=== PATIENT | male | born 1980 | race Caucasian/White ===

== ENCOUNTER 2016-11-18 21:47 | Emergency (ER) ==
[2016-11-18 21:47] VITALS: BMI 27.4
[2016-11-18 21:56] VITALS: BP 137/83; TEMP 99.1
[2016-11-18] MEDS ORDERED: DECADRON 4 MG/ML SDV IM STA (22:00)
[2016-11-18] MEDS ORDERED: PHENERGAN WITH CODEINE 6.25/10 MG/5 ML PO STA (22:00)
[2016-11-18] MEDS ORDERED: TUSSIONEX PO STA (22:03)
--- NOTE | 2016-11-18 22:06 | ED.PDOC ---
General ED Provider: Dr. STEFFANIE VAZQUEZ Chief Complaint: Cough Stated Complaint: Patient was in the hospital last week for the coughing congestion, now says he coughed so much blood is coming Time Seen by Physician: 22:04 Mode of Arrival: Walk-In Information Source: Patient Nursing and Triage Documentation Reviewed and Agree: Yes Respiratory Complaint Exam - Respiratory Complaint/Exam Symptoms Are: Still present Timing: Constant Initial Severity: Moderate Current Severity: Moderate Location: Chest Character: Reports: Non-productive cough Aggravating: Reports: Allergens, URI Alleviating: Reports: None Associated Signs and Symptoms: Reports: URI, Nasal congestion. Denies: Rapid breathing, Dyspnea, Fever, Chills, Chest pain, Pleuritic chest pain, Wheezing, Hemoptysis, Dizziness, Calf pain, Calf swelling, Edema, Hoarseness, Sinus discomfort, Vomiting, Sore throat, Weight loss, Decreased oral intake, Increased thirst, Increased appetite, Increased urination Related History: Reports: Similar episode History of Healthcare-Acquired Pneumonia: No Related Surgical History: Reports: None Pulmonary Embolism Risk Factors: None Cardiac Risk Factors: Reports: None Pseudomonas Risk Factors: Reports: None Tuberculosis Risk Factors: Reports: None Status Asthmaticus Risk Factors: Reports: None Home Oxygen Use: No Recent Stress Test: No Recent Echo/LV Function: No Current Antibiotic Use: No Current Asthma Medication Use: No Respiratory Distress: None Inadequate Respiratory Effort: No Dysphagia Present: No Stridor Present: No JVD Present: No Retractions: Not Present Diminished Breath Sounds: No Sinus Tenderness: None Grunting Respirations: No Kussmaul Respirations: No Differential Diagnoses: Pneumonia, Bronchitis Review of Systems - Review Of Systems Constitutional: Reports: Malaise, Weakness Eyes: Reports: No symptoms Ears, Nose, Mouth, Throat: Reports: No symptoms Respiratory: Reports: Cough Cardiac: Reports: No symptoms GI: Reports: No symptoms : Reports: No symptoms Musculoskeletal: Reports: No symptoms Skin: Reports: No symptoms Neurological: Reports: No symptoms Endocrine: Reports: No symptoms Hematologic/Lymphatic: Reports: No symptoms All Other Systems: Reviewed and Negative Past Medical History - Past Medical History Previously Healthy: Yes Endocrine: Reports: None Cardiovascular: Reports: Other (echo showed valve issues 9 months ago- resolved on repeat exam, chronic fast heart beat "110") Respiratory: Reports: Pneumonia (5 0 years old and as a teen) Hematological: Reports: None Gastrointestinal: Reports: None Genitourinary: Reports: None Neuro/Psych: Reports: None Musculoskeletal: Reports: None Cancer: Reports: None - Surgical History General Surgical History: Reports: None - Family History Family History: Reports: None - Social History Smoking Status: Former smoker, Vaping Hx Substance Use: No Alcohol Screening: None - Immunizations Tetanus Shot up to Date: Yes Physical Exam - Physical Exam Appearance: Ill-appearing Ill-appearing: Mild Eyes: RIAZ, EOMI, Conjunctiva clear ENT: Ears normal, Nose normal, Oropharynx normal Respiratory: Airway patent, Breath sounds clear, Breath sounds equal, Respirations nonlabored Cardiovascular: RRR, Pulses normal, No rub, No murmur GI/: Soft, Nontender, No masses, Bowel sounds normal, No Organomegaly Musculoskeletal: Normal strength, ROM intact, No edema, No calf tenderness Skin: Warm, Dry, Normal color Neurological: Sensation intact, Motor intact, Reflexes intact, Cranial nerves intact, Alert, Oriented Psychiatric: Affect appropriate, Mood appropriate Interpretation - Radiology Interpretation Radiology Interpretation By: Radiologist Radiology Results: Negative Exam Interpreted: CT Scan Critical Care Note - Critical Care Note Total Time (mins): 0 Course - Course Hematology/Chemistry: 11/18/16 22:06 11/18/16 22:06 Orders, Labs, Meds: Lab Review 11/18/16 22:06 WBC 14.43 H RBC 4.34 L Hgb 13.6 L Hct 39.1 L MCV 90.1 D MCH 31.3 H MCHC 34.8 RDW Coeff of Huey 12.3 Plt Count 330 Neutrophils % (Manual) 65.0 Lymphocytes % (Manual) 26.0 Monocytes % (Manual) 4.0 Eosinophils % (Manual) 1.0 Reactive Lymphocytes 4.0 Sodium 139 Potassium 4.1 Chloride 106 Carbon Dioxide 23 Anion Gap 14.1 BUN 20 H Creatinine 0.86 Estimated GFR (MDRD) 102.00 BUN/Creatinine Ratio 23.25 Glucose 108 H Calcium 8.9 Total Bilirubin 0.25 AST 24 ALT 72 Alkaline Phosphatase 86 Total Protein 6.5 Albumin 3.4 Globulin 3.1 Albumin/Globulin Ratio 1.10 Orders Category Date Time Status CBC W/ AUTO DIFF Stat LAB 11/18/16 22:06 Completed COMPREHENSIVE METABOLIC PANEL Stat LAB 11/18/16 22:06 Completed MANUAL DIFFERENTIAL Stat LAB 11/18/16 22:06 Completed Dexamethasone 4 mg/ml Inj [Decadron 4 mg/ml Sdv] MEDS 11/18/16 22:00 Discontinued 4 mg IM ONCE STA Hydrocodone/Chlorphen Polis [Tussionex] MEDS 11/18/16 22:03 Discontinued 5 ml PO ONCE STA CT CHEST W/O CONTRAST Stat RADS 11/18/16 22:00 Completed Medications Discontinued Medications Generic Name Dose Route Start Last Admin Trade Name Naunq PRN Reason Stop Dose Admin Chlorphenir/Hydrocodone Polistirex 5 ml 11/18/16 22:03 11/18/16 22:23 Tussionex PO 11/18/16 22:04 5 ml ONCE STA Administration Dexamethasone Sodium Phosphate 4 mg 11/18/16 22:00 11/18/16 22:23 Decadron 4 Mg/Ml Sdv IM 11/18/16 22:01 4 mg ONCE STA Administration Vital Signs: Temp Pulse Resp BP Pulse Ox 11/18/16 21:48 99.1 F 86 22 137/83 97 Departure - Departure Time of Disposition: 22:55 Disposition: HOME SELF-CARE Discharge Problem: Acute upper respiratory infection Instructions: Upper Respiratory Infection (ED) Condition: Stable Pt referred to PMD for follow-up: Yes Additional Instructions: CONTINUE KEFLEX, STEROIDS START Z PACK PLEASE START TAKING OTC COUGH SYRUP 4-5 HRLY INCREASE HYDRATION PROBIOTICS Prescriptions: Azithromycin [Zithromax] 250 mg PO DIRECTED #6 tablet Allergies/Adverse Reactions: Allergies amoxicillin Adverse Reaction (Verified 11/18/16 21:54) Sulfa (Sulfonamide Antibiotics) Adverse Reaction (Verified 11/18/16 21:54) Home Medications: Ambulatory Orders Albuterol Sulfate [Proair Hfa] 2 puff IH Q6H PRN #1 puff 11/15/16 Cephalexin [Keflex] 500 mg PO Q12HR #10 capsule 11/15/16 Hydrocodone/Chlorphen Polis [Tussionex] 5 ml PO Q12H PRN #240 disp.syrin Methylprednisolone [Medrol Dosepak] 1 mg PO DIRECTED #1 tab.ds.pk 11/15/16 Metoprolol Tartrate [Lopressor] 12.5 mg PO BID #60 tablet 11/15/16 Azithromycin [Zithromax] 250 mg PO DIRECTED #6 tablet 11/18/16 Disposition Discussed With: Patient
[2016-11-18 22:13] LABS: HEMATOCRIT 39.1 % (42.0-52.0); HEMOGLOBIN 13.6 g/dl (14.0-18.0); MEAN CORPUSCULAR HEMOGLOBIN 31.3 pg (27.0-31.0); MEAN CORPUSCULAR HGB CONC 34.8 (31.8-35.4); MEAN CORPUSCULAR VOLUME 90.1 fl (80.0-94.0); PLATELET COUNT 330 10^3/uL (140-440); RED BLOOD COUNT 4.34 10^6/ul (4.70-6.10); WHITE BLOOD COUNT 14.43 K/ul (4.2-10.2)
[2016-11-18 22:27] LABS: ANISOCYTOSIS NOT PRESENT (NOT PRESENT)
[2016-11-18 22:31] LABS: ALBUMIN 3.4 g/dL (3.4-5.0); ALBUMIN/GLOBULIN RATIO 1.1; ANION GAP 14.1; BILIRUBIN,TOTAL 0.25 mg/dL (0.00-1.20); BUN/CREATININE RATIO 23.25; CALCIUM 8.9 mg/dL (8.2-10.2); CREATININE 0.86 mg/dL (0.60-1.10); POTASSIUM 4.1 mmol/L (3.5-5.1); TOTAL PROTEIN 6.5 g/dL (6.4-8.2)
--- NOTE | 2016-11-18 22:37 | CT ---
EXAM: CT chest without intravenous contrast 11/18/2016. Sagittal and coronal reformatted images ob tained. HISTORY: Hemoptysis. Pneumonia COMPARISON: 11/14/2016 FINDINGS: The heart size appears within normal limits. There is no pericardial effusion. There are persistent ground-glass opacities within the right and left upper lobe. Faint ground-glas s opacities extend into the lingula, right middle lobe as well as the superior segment of both lower lobes. The majority of this process has resolved as compared to 11/14/2016. This may represent a small amount of residual pneumonia. No pulmonary consolidation, effusion or pneumothorax. There is mild persistent bronchial wall thickening which may relate to bronchiolitis. IMPRESSION: 1. Near-complete resolution of the previously described areas of pneumonia. Faint ground-glass opa city persists. 2. Persistent upper lobe bronchial wall thickening which may relate to bronchiolitis. 3. Retroaortic left renal vein.
== END 2016-11-18 23:05 | disposition home or self-care (01) ==
LOC: ED 21:47
DX: J06.9 Acute upper respiratory infection, unspecified (principal)
CPT/HCPCS: 36415; 80053; 85007; 85025; 96372; 96375; 99283

== ENCOUNTER 2017-02-06 22:28 | Emergency (ER) ==
[2017-02-06 22:41] VITALS: BP 101/64; BMI 25.8
[2017-02-06 23:20] LABS: FLU INTERNAL QC INTERNAL QC VALID; RAPID FLU A NEGATIVE (NEGATIVE); RAPID FLU B NEGATIVE (NEGATIVE)
[2017-02-06] MEDS ORDERED: ZITHROMAX PO STA (23:22)
[2017-02-06] MEDS ORDERED: MOTRIN SUSP PO STA (23:22)
--- NOTE | 2017-02-06 23:25 | ED.PDOC ---
General ED Provider: Dr. BRADEN DARLING-ER Chief Complaint: Fever Stated Complaint: denisa had a sore throat and fever-- Time Seen by Physician: 22:40 Mode of Arrival: Walk-In Information Source: Patient Exam Limitations: No limitations Primary Care Provider: FLORA ENRIQUEZ Nursing and Triage Documentation Reviewed and Agree: Yes EENT Complaint Exam - Throat Complaint/Exam Onset/Duration: 24hrs Symptoms Are: Still present Timimg: Intermittent Initial Severity: Mild Current Severity: Mild Aggravating: Reports: Eating Alleviating: Reports: Antipyretics Associated Signs and Symptoms: Reports: Fever, Nasal congestion. Denies: Dysphagia, Drooling, Foreign body sensation, Chills, Cough, Wheezing, Hoarseness , Sinus discomfort, Difficulty breathing, Lethargy, Irritability, Decreased activity, Vomiting, Diarrhea, Decreased hearing Uvula Midline: Yes Celi-tonsillar Fluctuence: Yes Scarlatinaform Rash Present: No Exanthem: Present: Pharynx Stridor Present: No Sinus Tenderness Present: No Tonsillar Hypertrophy Present: No Tonsillar Exudate Present: No Celi-tonsillar Swelling Present: No Adenopathy Present: Yes Splenomegaly Present: No Differential Diagnoses: Pharyngitis Review of Systems - Review Of Systems Constitutional: Reports: Fever Eyes: Reports: No symptoms Ears, Nose, Mouth, Throat: Reports: Throat pain Respiratory: Reports: No symptoms Cardiac: Reports: No symptoms GI: Reports: No symptoms : Reports: No symptoms Musculoskeletal: Reports: No symptoms Skin: Reports: No symptoms Neurological: Reports: No symptoms Endocrine: Reports: No symptoms Hematologic/Lymphatic: Reports: No symptoms All Other Systems: Reviewed and Negative Past Medical History - Past Medical History Previously Healthy: Yes Endocrine: Reports: None Cardiovascular: Reports: Other (echo showed valve issues 9 months ago- resolved on repeat exam, chronic fast heart beat "110") Respiratory: Reports: Pneumonia (5 0 years old and as a teen) Hematological: Reports: None Gastrointestinal: Reports: None Genitourinary: Reports: None Neuro/Psych: Reports: None Musculoskeletal: Reports: None Cancer: Reports: None - Surgical History General Surgical History: Reports: None - Family History Family History: Reports: None - Social History Smoking Status: Former smoker, Vaping Hx Substance Use: No Alcohol Screening: None Lives: With family - Immunizations Tetanus Shot up to Date: Yes Physical Exam - Physical Exam Appearance: Well-appearing, No pain distress, Well-nourished Pain Distress: Mild Eyes: RIAZ, EOMI, Conjunctiva clear ENT: Ears normal, Nose normal, Erythema Neck: Supple Respiratory: Airway patent, Breath sounds clear, Breath sounds equal, Respirations nonlabored Cardiovascular: RRR, Pulses normal, No rub, No murmur GI/: Soft, Nontender, No masses, Bowel sounds normal, No Organomegaly Musculoskeletal: Normal strength, ROM intact, No edema, No calf tenderness Skin: Warm, Dry, Normal color Neurological: Sensation intact, Motor intact, Reflexes intact, Cranial nerves intact, Alert, Oriented Psychiatric: Affect appropriate, Mood appropriate Critical Care Note - Critical Care Note Total Time (mins): 0 Course - Course Orders, Labs, Meds: Lab Review 02/06/17 22:43 Influenza A (Rapid) Negative Influenza B (Rapid) Negative Orders Category Date Time Status RAPID FLU A/B Stat LAB 02/06/17 22:43 Completed STREP SCREEN Stat LAB 02/06/17 22:43 Completed Azithromycin [Zithromax] MEDS 02/06/17 23:22 Stat 500 mg PO ONCE STA Ibuprofen Susp [Motrin Susp] MEDS 02/06/17 23:22 Stat 800 mg PO ONCE STA Vital Signs: Temp Pulse Resp BP Pulse Ox 02/06/17 22:36 101.5 F H 111 H 20 101/64 97 Departure - Departure Time of Disposition: 23:25 Disposition: HOME SELF-CARE Discharge Problem: Strep pharyngitis Instructions: Pharyngitis (ED), Strep Throat (ED) Condition: Good Pt referred to PMD for follow-up: Yes Additional Instructions: zithromax 250mg q daily #4--motrin for pain--fluids--rest--recheck in 48hrsf if not improved Allergies/Adverse Reactions: Allergies amoxicillin Adverse Reaction (Verified 02/06/17 22:41) Sulfa (Sulfonamide Antibiotics) Adverse Reaction (Verified 02/06/17 22:41) Home Medications: Ambulatory Orders Albuterol Sulfate [Proair Hfa] 2 puff IH Q6H PRN #1 puff 11/15/16 Metoprolol Tartrate [Lopressor] 12.5 mg PO BID #60 tablet 11/15/16 Disposition Discussed With: Patient
[2017-02-06 23:43] VITALS: TEMP 102.2
--- NOTE | 2017-02-06 23:58 | DI ---
EXAM: PA and lateral views of the chest. HISTORY: Fever and cough. FINDINGS: The bones are unremarkable. The cardiac silhouette and pulmonary vasculature are within n ormal limits. The costophrenic angles are clear. No infiltrate or consolidation. Impression: No acute cardiopulmonary disease.
[2017-02-07 00:32] LABS: BASOPHILS % (AUTO) 0.3 % (0.0-3.0); EOSINOPHILS % (AUTO) 0.1 % (0.0-7.0); HEMATOCRIT 38.8 % (42.0-52.0); HEMOGLOBIN 13.6 g/dl (14.0-18.0); IMMATURE GRANULOCYTE % (AUTO) 0.4 % (0.0-5.0); LYMPHOCYTES % (AUTO) 15.6 (10.0-50.0); MEAN CORPUSCULAR HEMOGLOBIN 31.6 pg (27.0-31.0); MEAN CORPUSCULAR HGB CONC 35.1 (31.8-35.4); MONOCYTES # (AUTO) 0.7 K/uL (0.4-2.0); MONOCYTES % (AUTO) 5.2 (0-10); NEUTROPHILS % (AUTO) 78.4; PLATELET COUNT 192 10^3/uL (140-440); RED BLOOD COUNT 4.31 10^6/ul (4.70-6.10); WHITE BLOOD COUNT 12.69 K/ul (4.2-10.2)
[2017-02-07 00:49] LABS: ALBUMIN 3.9 g/dL (3.4-5.0); ALBUMIN/GLOBULIN RATIO 1.22; ANION GAP 14.6; BILIRUBIN,TOTAL 1.09 mg/dL (0.00-1.20); BUN/CREATININE RATIO 10.29; CALCIUM 9.2 mg/dL (8.2-10.2); CREATININE 1.36 mg/dL (0.60-1.10); POTASSIUM 3.6 mmol/L (3.5-5.1); TOTAL PROTEIN 7.1 g/dL (6.4-8.2)
[2017-02-07 01:03] LABS: ERYTHROCYTE SEDIMENTATION RATE 29 mm/hr (0-15); ESR INTERNAL QC INTERNAL QC VALID
== END 2017-02-07 01:00 | disposition home or self-care (01) ==
LOC: ED 22:28
DX: J02.0 Streptococcal pharyngitis (principal); F17.290 Nicotine dependence, other tobacco product, uncomplicated
CPT/HCPCS: 36415; 80053; 83605; 84145; 85025; 85651; 86140; 87040; 87804; 87880; 99283

== ENCOUNTER 2017-04-27 18:36 | Inpatient (IN) ==
[2017-04-27] MEDS ORDERED: DECADRON 4 MG/ML SDV IM STA (18:45)
[2017-04-27] MEDS ORDERED: DUONEB NEB STA (18:45)
--- NOTE | 2017-04-27 18:48 | ED.PDOC ---
General <LINDSEYBRADEN - Last Filed: 04/27/17 19:41> Stated Complaint: was spraying the bed bug killer, with out wearing mask, he stared coughing after that, some sore throat, also says he was coughing before, but got worse after spraying Time Seen by Physician: 18:46 Mode of Arrival: Walk-In Information Source: Patient Nursing and Triage Documentation Reviewed and Agree: Yes <STEFFANIE VAZQUEZ - Last Filed: 05/04/17 16:32> ED Provider: Dr. STEFFANIE VAZQUEZ Chief Complaint: Cough Primary Care Provider: FLORA ENRIQUEZ Respiratory Complaint Exam - Respiratory Complaint/Exam Symptoms Are: Still present Timing: Constant Initial Severity: Moderate Current Severity: Moderate Location: Throat, Chest Character: Reports: Non-productive cough Aggravating: Reports: Allergens Alleviating: Reports: None Associated Signs and Symptoms: Denies: Rapid breathing, Dyspnea, Fever, Chills, Chest pain, Pleuritic chest pain, Wheezing, Hemoptysis, Dizziness, Calf pain, Calf swelling, Edema, URI, Nasal congestion, Hoarseness, Sinus discomfort, Vomiting, Sore throat, Weight loss, Decreased oral intake, Increased thirst, Increased appetite, Increased urination Related Surgical History: Reports: None Pulmonary Embolism Risk Factors: None Cardiac Risk Factors: Reports: None Pseudomonas Risk Factors: Reports: None Tuberculosis Risk Factors: Reports: None Status Asthmaticus Risk Factors: Reports: None Home Oxygen Use: No Recent Stress Test: No Recent Echo/LV Function: No Current Antibiotic Use: No Current Asthma Medication Use: No Respiratory Distress: None Inadequate Respiratory Effort: No Dysphagia Present: No Stridor Present: No JVD Present: No Accessory Muscle Use: No Retractions: Not Present Diminished Breath Sounds: No Differential Diagnoses: Pneumonia, Other (allergica reaction\\) <STEFFANIE VAZQUEZ - Last Filed: 05/04/17 16:32> Review of Systems - Review Of Systems Constitutional: Reports: No symptoms Eyes: Reports: No symptoms Ears, Nose, Mouth, Throat: Reports: No symptoms Respiratory: Reports: Cough Cardiac: Reports: No symptoms GI: Reports: No symptoms : Reports: No symptoms Musculoskeletal: Reports: No symptoms Skin: Reports: No symptoms Neurological: Reports: No symptoms Endocrine: Reports: No symptoms Hematologic/Lymphatic: Reports: No symptoms All Other Systems: Reviewed and Negative <STEFFANIE VAZQUEZ - Last Filed: 05/04/17 16:32> Past Medical History - Past Medical History Previously Healthy: Yes Endocrine: Reports: None Cardiovascular: Reports: Other (echo showed valve issues 9 months ago- resolved on repeat exam, chronic fast heart beat "110") Respiratory: Reports: Pneumonia (5 0 years old and as a teen) Hematological: Reports: None Gastrointestinal: Reports: None Genitourinary: Reports: None Neuro/Psych: Reports: None Musculoskeletal: Reports: None Cancer: Reports: None - Surgical History General Surgical History: Reports: None - Family History Family History: Reports: None - Social History Smoking Status: Former smoker, Vaping Hx Substance Use: No Alcohol Screening: None <STEFFANIE VAZQUEZ - Last Filed: 05/04/17 16:32> Physical Exam - Physical Exam Appearance: Ill-appearing, Thin Ill-appearing: Mild Eyes: RIAZ, EOMI, Conjunctiva clear ENT: Ears normal, Nose normal, Oropharynx normal Respiratory: Airway patent, Breath sounds clear, Breath sounds equal, Respirations nonlabored Cardiovascular: RRR, Pulses normal, No rub, No murmur GI/: Soft, Nontender, No masses, Bowel sounds normal, No Organomegaly Musculoskeletal: Normal strength, ROM intact, No edema, No calf tenderness Skin: Warm, Dry, Normal color Neurological: Sensation intact, Motor intact, Reflexes intact, Cranial nerves intact, Alert, Oriented Psychiatric: Affect appropriate, Mood appropriate <STEFFANIE VAZQUEZ Last Filed: 05/04/17 16:32> Interpretation - Radiology Interpretation Radiology Interpretation By: Radiologist Radiology Results: Positive Exam Interpreted: CXR <BRADEN PORTILLO - Last Filed: 04/27/17 19:41> Re-Evaluation - Re-Evaluation Time of Re-Evaluation: 19:41 Status: Improved Vital Signs Stable: Yes Pain Level: 2 Appearance: NAD Lungs: Clear Skin: Warm and Dry Neuro: Alert and Oriented X3 CV: RRR <BRADEN PORTILLO - Last Filed: 04/27/17 19:41> Physician Notification - Case Discussed Physician Notified: dr vazquez <BRADEN PORTILLO - Last Filed: 04/27/17 19:41> - Case Discussed Time of Notification: 18:51 (dr kodi) <ALIZA VAZQUEZAN - Last Filed: 05/04/17 16:32> Critical Care Note - Critical Care Note Total Time (mins): 0 <STEFFANIE VAZQUEZ - Last Filed: 05/04/17 16:32> Course - Course Hematology/Chemistry: 04/29/17 04:33 04/29/17 04:33 <STEFFANIE VAZQUEZ - Last Filed: 05/04/17 16:32> - Course Orders, Labs, Meds: Orders Category Date Time Status [facility] ADMISSION 04/27/17 19: 42 Completed NEBULIZER TREATMENT Stat CARDIO 04/27/17 18:45 Completed NEBULIZER TREATMENT Stat CARDIO 04/27/17 19:05 Completed OXYGEN Routine CARDIO 04/27/17 19:45 Completed ACTIVITY .BR with BRP CARE 04/27/17 19:42 Active INTAKE & OUTPUT Q8HR CARE 04/27/17 19:44 Active TELEMETRY MONITORING TELE CARE 04/27/17 19:45 Active VITAL SIGNS Q4HR CARE 04/27/17 19:42 Active REGULAR DIET DIETARY 04/27/17 Breakfast Completed ED IV/MEDIPORT/POWERPORT .ONCE EMERGENCY 04/27/17 19:05 Active CBC W/ AUTO DIFF DAILY@0600 LAB 04/28/17 04:37 Completed CBC W/ AUTO DIFF DAILY@0600 LAB 04/29/17 04:33 Completed COMPREHENSIVE METABOLIC PANEL DAILY@0600 LAB 04/28/17 04:37 Completed COMPREHENSIVE METABOLIC PANEL DAILY@0600 LAB 04/29/17 04:33 Completed MOLECULAR GROUP A STREP Stat LAB 04/27/17 19:40 Completed RAPID STREP SCREEN [STREP SCREEN] Stat LAB 04/27/17 19:40 Completed 0.9 % Sodium Chloride [Saline Flush] MEDS 04/27/17 19:05 Discontinued 1 syr IVF PRN PRN Albuterol Sulfate 0.042% Neb [Albuterol 0.042% Neb] MEDS 04/27/17 19:05 Discontinued 1 vial NEB ONCE STA Budesonide [Pulmicort 0.5 mg/2 ml] MEDS 04/27/17 19:05 Discontinued 1 vial NEB ONCE STA Dexamethasone 4 mg/ml Inj [Decadron 4 mg/ml Sdv] MEDS 04/27/17 18:45 Discontinued 4 mg IM ONCE STA Enoxaparin Sodium [Lovenox] MEDS 04/28/17 09:00 Discontinued 40 mg SUBCUT DAILY Ipratropium/Albuterol Neb [Duoneb] MEDS 04/27/17 18:45 Discontinued 1 vial NEB ONCE STA Levalbuterol HCl [Xopenex 1.25 mg] MEDS 04/27/17 19:05 Discontinued 1 vial NEB ONCE STA Methylprednisolone Sod Succ/Pf [Solu-Medrol 125 mg] MEDS 04/27/17 19:05 Discontinued 125 mg IVP ONCE STA Morphine Sulfate [Morphine 2 mg/ml Syringe] MEDS 04/27/17 19:38 Discontinued 2 mg IVP ONCE STA Ondansetron HCl/Pf [Zofran 4 mg/2 ml] MEDS 04/27/17 19:38 Discontinued 4 mg IVP ONCE STA RESUSCITATION STATUS Routine OTHERS 04/27/17 19:42 Ordered CXR [CHEST, 2 VIEWS PA & LAT] Stat RADS 04/27/17 18:45 Completed Medications Discontinued Medications Generic Name Dose Route Start Last Admin Trade Name Freq PRN Reason Stop Dose Admin Acetaminophen/Hydrocodone Bitart 1 tab 04/27/17 19:51 04/28/17 08:33 [place] 7.5-325 PO 1 tab Q4HR PRN Administration MODERATE PAIN Albuterol Sulfate 1 vial 04/27/17 19:05 04/27/17 19:14 Albuterol 0.042% Neb NEB 04/27/17 19:06 1 vial ONCE STA Administration Albuterol/Ipratropium 1 vial 04/27/17 18:45 04/27/17 18:51 Duoneb NEB 04/27/17 18:46 1 vial ONCE STA Administration Albuterol/Ipratropium 1 vial 04/27/17 22:00 04/28/17 17:10 Duoneb NEB 1 vial RTQ4H TRISTIAN Administration Budesonide 1 vial 04/27/17 19:05 04/27/17 19:37 Pulmicort 0.5 Mg/2 Ml NEB 04/27/17 19:06 1 vial ONCE STA Administration Dexamethasone Sodium Phosphate 4 mg 04/27/17 18:45 04/27/17 18:58 Decadron 4 Mg/Ml Sdv IM 04/27/17 18:46 4 mg ONCE STA Administration Diltiazem HCl 5 mg 04/27/17 21:14 Cardizem Inj IVP Q6H PRN HR >140 Diltiazem HCl 10 mg 04/28/17 18:15 04/28/17 18:30 Cardizem Inj IVP 04/28/17 18:16 10 mg ONCE STA Administration Diltiazem HCl 30 mg 04/28/17 21:00 04/29/17 05:29 Cardizem PO 30 mg Q8HR TRISTIAN Administration Enoxaparin Sodium 40 mg 04/28/17 09:00 04/29/17 09:15 Lovenox SUBCUT 40 mg DAILY TRISTIAN Administration Guaifenesin/Codeine Phosphate 10 ml 04/27/17 19:49 04/29/17 05:29 Robitussin Ac Syrup PO 10 ml Q4H PRN Administration Cough Levofloxacin/Dextrose 750 mg/ 150 mls @ 100 mls/hr 04/27/17 19:47 04/27/17 20 :34 Dextrose IV 04/27/17 21:16 Not Given ONCE STA Levofloxacin/Dextrose 750 mg/ 150 mls @ 100 mls/hr 04/28/17 09:00 04/29/17 09 :14 Dextrose IV 100 mls/hr DAILY TRISTIAN Administration Levalbuterol HCl 1 vial 04/27/17 19:05 04/27/17 19:24 Xopenex 1.25 Mg NEB 04/27/17 19:06 1 vial ONCE STA Administration Levalbuterol HCl 1 vial 04/28/17 18:17 04/29/17 05:09 Xopenex 1.25 Mg NEB 1 vial RTQ6H PRN Administration Wheezing Lorazepam 1 mg 04/28/17 23:28 04/28/17 23:34 Ativan PO 04/28/17 23:29 1 mg ONCE STA Administration Methylprednisolone Sodium Succinate 125 mg 04/27/17 19:05 04/27/17 19:15 Solu-Medrol 125 Mg IVP 04/27/17 19:06 125 mg ONCE STA Administration Methylprednisolone Sodium Succinate 40 mg 04/28/17 00:00 04/29/17 05:28 Solu-Medrol 40 Mg IVP 40 mg Q6HR TRISTIAN Administration Metoprolol Tartrate 12.5 mg 04/27/17 21:00 04/29/17 09:14 Lopressor PO 12.5 mg BID TRISTIAN Administration Morphine Sulfate 2 mg 04/27/17 19:38 04/27/17 20:32 Morphine 2 Mg/Ml Syringe IVP 04/27/17 19:39 2 mg ONCE STA Administration Morphine Sulfate 2 mg 04/28/17 18:16 04/28/17 18:29 Morphine 2 Mg/Ml Syringe IVP 2 mg Q6H PRN Administration Chest Pain Ondansetron HCl 4 mg 04/27/17 19:38 04/27/17 20:33 Zofran 4 Mg/2 Ml IVP 04/27/17 19:39 4 mg ONCE STA Administration Sodium Chloride 1 syr 04/27/17 19:05 04/27/17 23:03 Saline Flush IVF 1 syr PRN PRN Administration To flush IV Sodium Chloride 1 syr 04/27/17 21:00 04/29/17 05:29 Saline Flush IVF 1 syr Q8HR TRISTIAN Administration Vital Signs: Temp Pulse Resp BP Pulse Ox 04/27/17 18:36 97.8 F 128 H 20 103/60 97 Departure - Departure Time of Disposition: 19:42 Pt referred to PMD for follow-up: Yes Transfer Form Completed: No Disposition Discussed With: Patient, Family <BRADEN PORTILLO - Last Filed: 04/27/17 19:41> - Departure Pt referred to PMD for follow-up: Yes Disposition Discussed With: Patient, Family <STEFFANIE VAZQUEZ - Last Filed: 05/04/17 16:32> - Departure Disposition: ADMITTED INPATIENT Discharge Problem: Chemical pneumonitis Allergic reaction to chemical substance Qualifiers: Encounter type: initial encounter Injury intent: accidental or unintentional Qualifier Code: (T65.91XA) Toxic effect of unspecified substance, accidental ( unintentional), initial encounter Condition: Good Allergies/Adverse Reactions: Allergies amoxicillin Adverse Reaction (Verified 04/27/17 18:39) Sulfa (Sulfonamide Antibiotics) Adverse Reaction (Verified 04/27/17 18:39) Home Medications: Ambulatory Orders Albuterol Sulfate [Proair Hfa] 2 puff IH Q6H PRN #1 puff 11/15/16 Metoprolol Tartrate [Lopressor] 12.5 mg PO BID #60 tablet 11/15/16 Methylprednisolone [Medrol Dosepak] 4 mg PO DIRECTED #1 pkg 04/27/17 Azithromycin [Zithromax] 250 mg PO DAILY #6 tablet 04/29/17 Diltiazem HCl [Cardizem] 60 mg PO Q12HR #60 tablet 04/29/17
[2017-04-27] MEDS ORDERED: XOPENEX 1.25 MG NEB STA (19:05)
[2017-04-27] MEDS ORDERED: SOLU-MEDROL 125 MG IVP STA (19:05)
[2017-04-27] MEDS ORDERED: ALBUTEROL 0.042% NEB NEB STA (19:05)
[2017-04-27] MEDS ORDERED: PULMICORT 0.5 MG/2 ML NEB STA (19:05)
--- NOTE | 2017-04-27 19:28 | DI ---
EXAM: Chest two views HISTORY: Chemical aspiration, coughing COMPARISON: 02/06/2017 TECHNIQUE: Two views of the chest were performed FINDINGS: Patchy left basilar and questionably right basilar infiltrate There is no pleural effusi on or pneumothorax. The heart is normal in size. The mediastinal contour is normal. There are no acute abnormalities of the bones. IMPRESSION: Patchy left basilar and questionable right basilar infiltrate may represent pneumonitis or pneumonia. Report faxed at time of dictation.
[2017-04-27] MEDS ORDERED: ZOFRAN 4 MG/2 ML IVP STA (19:38)
[2017-04-27] MEDS ORDERED: MORPHINE 2 MG/ML SYRINGE IVP STA (19:38)
[2017-04-27] MEDS ORDERED: LEVAQUIN 750 MG in PREMIX 150 ML D5W 1 BAG IV STA (19:47)
[2017-04-27] MEDS ORDERED: NORCO 7.5-325 PO PRN (19:51)
[2017-04-27 20:14] LABS: BASOPHILS # (AUTO) 0.1 K/uL (0-0.2); BASOPHILS % (AUTO) 0.4 % (0.0-3.0); EOSINOPHILS # (AUTO) 0.1 K/ul (0.0-0.7); EOSINOPHILS % (AUTO) 0.6 % (0.0-7.0); HEMATOCRIT 41.7 % (42.0-52.0); HEMOGLOBIN 14.5 g/dl (14.0-18.0); IMMATURE GRANULOCYTE % (AUTO) 0.4 % (0.0-5.0); LYMPHOCYTES # (AUTO) 2.8 K/uL (0.60-3.4); LYMPHOCYTES % (AUTO) 15.3 (10.0-50.0); MEAN CORPUSCULAR HEMOGLOBIN 31.5 pg (27.0-31.0); MEAN CORPUSCULAR HGB CONC 34.8 (31.8-35.4); MEAN CORPUSCULAR VOLUME 90.7 fl (80.0-94.0); MONOCYTES # (AUTO) 0.6 K/uL (0.4-2.0); MONOCYTES % (AUTO) 3.4 (0-10); NEUTROPHILS # (AUTO) 14.7 K/ul (2.0-6.9); NEUTROPHILS % (AUTO) 79.9; PLATELET COUNT 232 10^3/uL (140-440); WHITE BLOOD COUNT 18.42 K/ul (4.2-10.2)
[2017-04-27] MEDS ORDERED: LEVAQUIN 150 ML IV ONE (20:24)
[2017-04-27] MEDS: ROBITUSSIN AC SYRUP PO PRN (20:29)
[2017-04-27 20:33] LABS: ALBUMIN 4.1 g/dL (3.4-5.0); ALBUMIN/GLOBULIN RATIO 1.24; ANION GAP 17.2; BILIRUBIN,TOTAL 0.41 mg/dL (0.00-1.20); BUN/CREATININE RATIO 12.38; CALCIUM 9.4 mg/dL (8.2-10.2); CREATININE 1.05 mg/dL (0.60-1.10); POTASSIUM 3.2 mmol/L (3.5-5.1); TOTAL PROTEIN 7.4 g/dL (6.4-8.2)
[2017-04-27] MEDS: LOPRESSOR PO SCH (20:33)
[2017-04-27 21:02] VITALS: BMI 26.1
[2017-04-27] MEDS ORDERED: CARDIZEM INJ IVP PRN (21:14)
[2017-04-27] MEDS: DUONEB NEB SCH (21:17)
[2017-04-27] MEDS: SOLU-MEDROL 40 MG IVP SCH (23:02)
[2017-04-28] MEDS: DUONEB NEB SCH ×5 (01:21→17:10)
[2017-04-28 04:39] LABS: BASOPHILS % (AUTO) 0.1 % (0.0-3.0); HEMATOCRIT 36.9 % (42.0-52.0); HEMOGLOBIN 12.8 g/dl (14.0-18.0); IMMATURE GRANULOCYTE % (AUTO) 0.5 % (0.0-5.0); LYMPHOCYTES # (AUTO) 0.7 K/uL (0.60-3.4); LYMPHOCYTES % (AUTO) 4.1 (10.0-50.0); MEAN CORPUSCULAR HEMOGLOBIN 31.4 pg (27.0-31.0); MEAN CORPUSCULAR HGB CONC 34.7 (31.8-35.4); MEAN CORPUSCULAR VOLUME 90.4 fl (80.0-94.0); MONOCYTES # (AUTO) 0.1 K/uL (0.4-2.0); MONOCYTES % (AUTO) 0.8 (0-10); NEUTROPHILS % (AUTO) 94.5; PLATELET COUNT 205 10^3/uL (140-440); RED BLOOD COUNT 4.08 10^6/ul (4.70-6.10)
[2017-04-28 05:01] LABS: ALBUMIN 3.7 g/dL (3.4-5.0); ALBUMIN/GLOBULIN RATIO 1.16; BILIRUBIN,TOTAL 0.4 mg/dL (0.00-1.20); BUN/CREATININE RATIO 11.71; CALCIUM 9.6 mg/dL (8.2-10.2); CREATININE 1.11 mg/dL (0.60-1.10); TOTAL PROTEIN 6.9 g/dL (6.4-8.2)
[2017-04-28] MEDS: SOLU-MEDROL 40 MG IVP SCH ×4 (05:01→23:29)
[2017-04-28] MEDS: ROBITUSSIN AC SYRUP PO PRN ×4 (05:02→23:35)
[2017-04-28] MEDS: LOPRESSOR PO SCH ×2 (08:14→20:32)
[2017-04-28] MEDS: LEVAQUIN 750 MG in PREMIX 150 ML D5W 1 BAG IV SCH (08:14)
[2017-04-28] MEDS: LOVENOX SUBCUT SCH (08:15)
--- NOTE | 2017-04-28 11:47 | DI ---
EXAM: PA and lateral views of the chest HISTORY: Follow up pneumonia COMPARISON: Chest x-ray 04/27/2017 and multiple prior chest x-rays and CT chest 11/18/2016 FINDINGS: The cardiomediastinal silhouette is normal. There is no pneumothorax or pleural effusion . There is no consolidation, nodule or mass. The osseous structures are unremarkable. IMPRESSION: No acute cardiopulmonary process or consolidation.
[2017-04-28] MEDS ORDERED: CARDIZEM INJ IVP STA (18:15)
[2017-04-28] MEDS ORDERED: MORPHINE 2 MG/ML SYRINGE IVP PRN (18:16)
[2017-04-28] MEDS: CARDIZEM PO SCH (20:32)
[2017-04-28] MEDS: XOPENEX 1.25 MG NEB PRN (23:19)
[2017-04-28] MEDS ORDERED: ATIVAN PO STA (23:28)
[2017-04-29 04:34] LABS: BASOPHILS % (AUTO) 0.1 % (0.0-3.0); HEMOGLOBIN 12.1 g/dl (14.0-18.0); IMMATURE GRANULOCYTE % (AUTO) 0.8 % (0.0-5.0); LYMPHOCYTES # (AUTO) 1.2 K/uL (0.60-3.4); LYMPHOCYTES % (AUTO) 7.1 (10.0-50.0); MEAN CORPUSCULAR HEMOGLOBIN 31.5 pg (27.0-31.0); MEAN CORPUSCULAR HGB CONC 34.6 (31.8-35.4); MEAN CORPUSCULAR VOLUME 91.1 fl (80.0-94.0); MONOCYTES # (AUTO) 0.4 K/uL (0.4-2.0); MONOCYTES % (AUTO) 2.3 (0-10); NEUTROPHILS # (AUTO) 14.5 K/ul (2.0-6.9); NEUTROPHILS % (AUTO) 89.7; PLATELET COUNT 209 10^3/uL (140-440); RED BLOOD COUNT 3.84 10^6/ul (4.70-6.10); WHITE BLOOD COUNT 16.13 K/ul (4.2-10.2)
[2017-04-29 04:59] LABS: ALBUMIN 3.6 g/dL (3.4-5.0); ALBUMIN/GLOBULIN RATIO 1.16; ANION GAP 14.9; BILIRUBIN,TOTAL 0.19 mg/dL (0.00-1.20); BUN/CREATININE RATIO 13.18; CALCIUM 9.4 mg/dL (8.2-10.2); CREATININE 0.91 mg/dL (0.60-1.10); POTASSIUM 3.9 mmol/L (3.5-5.1); TOTAL PROTEIN 6.7 g/dL (6.4-8.2)
[2017-04-29] MEDS: XOPENEX 1.25 MG NEB PRN (05:09)
[2017-04-29] MEDS: SOLU-MEDROL 40 MG IVP SCH (05:28)
[2017-04-29] MEDS: ROBITUSSIN AC SYRUP PO PRN (05:29)
[2017-04-29] MEDS: CARDIZEM PO SCH (05:29)
[2017-04-29] MEDS: LOPRESSOR PO SCH (09:14)
[2017-04-29] MEDS: LEVAQUIN 750 MG in PREMIX 150 ML D5W 1 BAG IV SCH (09:14)
[2017-04-29] MEDS: LOVENOX SUBCUT SCH (09:15)
--- NOTE | 2017-04-29 09:54 | PCM.PROG ---
Attending Provider: ATTENDING PROVIDER: Dr. STEFFANIE VELIZ DATE OF SERVICE: 04/29/17 SUBJECTIVE: This 36 year old WHITE/ M was hospitalized 04/27/17. The patient had a chest x-ray done yesterday, which was normal. The patient had a rapid heart rate yesterday after breathing treatment. The patient was started on Cardizem 30 mg t.i.d. - heart rate is now 90 to 100 sinus. The patient's is in the room and has a lot of questions. The patient is going out vaping all the time and says he has done his research and vaping is better for his lungs than smoking (as one of the ingredients in vaping is the same that is in the Albuterol). REVIEW OF SYSTEMS: CONSTITUTIONAL: No fever, no chills. ENDOCRINE: No weight loss or weight gain. HEENT: No sinus drainage, no sore throat. CVS: No angina symptoms. No CHF symptoms. No palpitations. No atypical chest pain for CAD. No shortness of breath. RESPIRATORY: No cough, no hemoptysis. GI: No melena. No abdominal pain. No nausea, no vomiting. : No hematuria. No polyuria. SKIN: No rash. No wounds. MUSCULOSKELETAL: No pain. 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 No headache. No double vision. PSYCHIATRIC: Not anxious; no depression. No suicidal thoughts. No homicidal thoughts. PHYSICAL EXAMINATION: GENERAL: Sitting in bed in no distress. VITAL SIGNS: Temperature 98.0 F, Pulse 101, Respiratory Rate 20, BP 111/54, Pulse Ox 94% HEENT: Normocephalic, atraumatic. Mucosa is dry, pallor positive. NECK: No JVP, no carotid bruit. No lymphadenopathy. CARDIAC: S1, S2, sinus tachy rhythm. LUNGS: Clear to auscultation. ABDOMEN: Soft, non-tender. Bowel sounds active. No rigidity, guarding or CVA tenderness. EXTREMITIES: No clubbing, cyanosis or edema. NEUROLOGIC: Awake, alert and oriented x3. LYMPHATIC: No palpable lymph nodes SKIN: Not dry. Intact. MUSCULOSKELETAL: No joint swelling. LAB REVIEW: 04/29/17 04:33 04/29/17 04:33 04/29/17 04:33: WBC 16.13 H, RBC 3.84 L, Hgb 12.1 L, Hct 35.0 L, MCV 91.1, MCH 31.5 H, MCHC 34.6, RDW Coeff of Huey 12.4, Plt Count 209, Immature Gran % (Auto) 0.8, Neut % (Auto) 89.7, Lymph % (Auto) 7.1 L, Fallon % (Auto) 2.3, Eos % (Auto) 0.0, Baso % (Auto) 0.1, Immature Gran # (Auto) 0.1, Neut # 14.5 H, Lymph # 1.2, Fallon # 0.4, Eos # 0.0, Baso # 0.0, Sodium 141, Potassium 3.9, Chloride 109 H, Carbon Dioxide 21, Anion Gap 14.9, BUN 12, Creatinine 0.91, Estimated GFR (MDRD ) 95.00, BUN/Creatinine Ratio 13.18, Glucose 197 H D, Calcium 9.4, Total Bilirubin 0.19, AST 19, ALT 19, Alkaline Phosphatase 84, Total Protein 6.7, Albumin 3.6, Globulin 3.1, Albumin/Globulin Ratio 1.16 ASSESSMENT: 1. Sinus tachy - medication versus thyroid problem (TSH ordered) 2. Chemical pneumonitis from bug spray 3. Pneumonia bilateral 4. Anxiety PLAN: 1. PFT as an outpatient next week. 2. Followup with Dr. Veliz in the [facility] in one week. 3. T4 and TSH. 4. Change Albuterol to Xopenex. 5. Cardizem 60 mg b.i.d. 6. Z-Pack. 7. Medrol Dosepak. Plan and coordination of the patient's care discussed in the presence of Data Conversion Developer and nurse. CONDITION: Stable EDUCATION CARRIED OUT ABOUT: Lifestyle modifications discussed and encouraged to exercise 3 times a week. SCRIBED BY: SUSANA RYAN, Diet Assistant scribed while in presence of service performed by Dr. STEFFANIE VELIZ on 04/29/17 ([id number])
[2017-04-29 10:21] VITALS: BP 113/66; TEMP 97.8
--- NOTE | 2017-04-29 10:32 | PN ---
DATE OF SERVICE: 04/28/17 SUBJECTIVE: The patient was admitted with pneumonia, chemical pneumonitis. The patient is sitting in bed stating he is still having cough and congestion productive of phlegm. He had temperature of 99.5. White count is better, 16,000 today. No PND, no orthopnea. REVIEW OF SYSTEMS: CONSTITUTIONAL: Fever; no chills. HEENT: Normal. ENDOCRINE: No weight gain, no weight loss. CVS: No angina symptoms. No CHF symptoms. No palpitations. No atypical chest pain for CAD. No shortness of breath. No PND, no orthopnea. RESPIRATORY: Cough and congestion. No hemoptysis. GI: No nausea, no vomiting. No abdominal pain. : No hematuria. No polyuria. MUSCULOSKELETAL:. No joint swelling. PSYCHIATRIC: Not anxious. No depression. No suicidal thoughts. No homicidal thoughts. SKIN: Intact. No rash. PHYSICAL EXAMINATION: V/S: BP 110/55, respiratory rate 20, heart rate 110, temperature 98.3. HEENT: Normocephalic, atraumatic. Mucosa dry. Pallor positive. NECK: Supple. No JVD, no carotid bruit. No lymphadenopathy. LUNGS: Decreased entry. Clear to auscultation. No rales or rhonchi. HEART: S1, S2 normal. No S3. No murmur, gallop or regurgitation. ABDOMEN: Soft, nontender. Bowel sounds active. No rigidity. No rebound or guarding. No CVA tenderness. EXTREMITIES: No clubbing, cyanosis or pedal edema. MUSCULOSKELETAL: No joint swelling. NEUROLOGIC: Awake, alert, oriented times three. No focal deficit. LYMPHATIC: No lymph nodes palpable. SKIN: Intact. LABS: White count 16.90, hemoglobin 12.8, hematocrit 36.9, platelet count 205. Sodium 138, potassium 4.0, chloride 105, bicarb 19. BUN 13, creatinine 1.11, glucose 276. ASSESSMENT: 1. CHEMICAL PNEUMONITIS 2. HYPERGLYCEMIA MOST LIKELY FROM STEROIDS BUT RULE OUT DIABETES 3. SINUS TACHYCARDIA FROM MEDICATION 4. ANEMIA PROBABLY HEMODILUTION 5. ANXIETY 6. NICOTINE USE PLAN: 1. Continue Levaquin 2. Continue Solu-Medrol 40 q.8hr 3. Duonewilmar 4. Will follow with the patient in daily rounds TIME SPENT: More than 30 minutes MTDD
--- NOTE | 2017-04-29 10:43 | PN ---
DATE OF SERVICE: 04/27/17 CHIEF COMPLAINT: Cough SUBJECTIVE: This is a 36-year-old male, who has had coughing going on for 3 to 4 days. Today , he sprayed a chemical spray for bed bugs all over the house and did not wear a mask and started him to have nonstop coughing. He came to the emergency room. Dr. Marquez evaluated the patient in the emergency room. Initially I saw the patient in the emergency room then Dr. Marquez saw the patient. Chest x-ray showed pneumonia. At that time, the patient was admitted to the hospital for IV antibiotics and breathing treatment. REVIEW OF SYSTEMS: CONSTITUTIONAL: No fever, no chills. HEENT: Normal. ENDOCRINE: No weight gain, no weight loss. CVS: No angina symptoms. No CHF symptoms. No palpitations. No atypical chest pain for CAD. No shortness of breath. No PND, no orthopnea. RESPIRATORY: Cough and congestion. GI: No nausea, no vomiting. No abdominal pain. : No hematuria. No polyuria. MUSCULOSKELETAL:. No joint swelling. PSYCHIATRIC: Not anxious. No depression. No suicidal thoughts. No homicidal thoughts. SKIN: Intact. No rash. PHYSICAL EXAMINATION: V/S: BP 124/65, respiratory rate 20, heart rate 36, temperature 96.6. HEENT: Normocephalic, atraumatic. Mucosa dry. NECK: Supple. No JVD, no carotid bruit. No lymphadenopathy. LUNGS: Decreased entry with basilar crackles. No rales or rhonchi. HEART: S1, S2 normal. No S3. No murmur, gallop or regurgitation. ABDOMEN: Soft, nontender. Bowel sounds active. No rigidity. No rebound or guarding. No CVA tenderness. EXTREMITIES: No clubbing, cyanosis or pedal edema. MUSCULOSKELETAL: No joint swelling. NEUROLOGIC: Awake, alert, oriented times three. No focal deficit. LYMPHATIC: No lymph nodes palpable. SKIN: Intact. LAB DATA: White count 18.42, hemoglobin 14.5, hematocrit 41.7, platelet count 232. Sodium 140, potassium 3.2, chloride 103, bicarb 23, BUN 13, creatinine 1.05, glucose 113. ASSESSMENT: 1. CHEMICAL PNEUMONITIS 2. LEUKOCYTOSIS SECONDARY TO CHEMICAL PNEUMONITIS 3. RESPIRATORY DISTRESS SECONDARY TO CHEMICAL PNEUMONITIS PLAN: 1. Admit the patient to the regular floor. 2. Levaquin. 3. IV fluids. 4. Solu-Medrol 40 q.8hr. 5. Duonebs. 6. Lovenox 40 mg SQ daily. TIME SPENT: More than 55 minutes today MTDD
--- NOTE | 2017-06-12 07:12 | HP ---
DATE OF SERVICE: 04/27/17 REASON FOR ADMISSION: Chemical Pneumonitis HISTORY OF PRESENT ILLNESS: This is a 36-year-old male, who has had coughing going on for 3 to 4 days. Today , he sprayed a chemical spray for bed bugs all over the house and did not wear a mask and started him to have nonstop coughing. He came to the emergency room. Dr. Marquez evaluated the patient in the emergency room. Initially I saw the patient in the emergency room then Dr. Marquez saw the patient. Chest x-ray showed pneumonia. At that time, the patient was admitted to the hospital for IV antibiotics and breathing treatment. REVIEW OF SYSTEMS: CONSTITUTIONAL: No fever, no chills. HEENT: Normal. ENDOCRINE: No weight gain, no weight loss. CVS: No angina symptoms. No CHF symptoms. No palpitations. No atypical chest pain for CAD. No shortness of breath. No PND, no orthopnea. RESPIRATORY: Cough and congestion. GI: No nausea, no vomiting. No abdominal pain. : No hematuria. No polyuria. MUSCULOSKELETAL:. No joint swelling. PSYCHIATRIC: Not anxious. No depression. No suicidal thoughts. No homicidal thoughts. SKIN: Intact. No rash. PAST MEDICAL HISTORY: 1. Tachycardia 2. Asthma 3. Torn ligament shoulder 4. Anxiety PAST SURGICAL HISTORY: None PERSONAL HISTORY: Tobacco - smokes. No alcohol. No illicit drug use. , lives with . FAMILY HISTORY: Significant for heart problems and diabetes. MEDICATIONS: (HOME) 1. Lopressor 2. ProAir ALLERGIES: SULFA (SULFONAMIDE ANTIBIOTICS), AMOXICILLIN LAB DATA: White count 18.42, hemoglobin 14.5, hematocrit 41.7, platelet count 232. Sodium 140, potassium 3.2, chloride 103, bicarb 23, BUN 13, creatinine 1.05, glucose 113. PHYSICAL EXAMINATION: V/S: BP 124/65, respiratory rate 20, heart rate 36, temperature 96.6. HEENT: Normocephalic, atraumatic. Mucosa dry. NECK: Supple. No JVD, no carotid bruit. No lymphadenopathy. LUNGS: Decreased entry with basilar crackles. No rales or rhonchi. HEART: S1, S2 normal. No S3. No murmur, gallop or regurgitation. ABDOMEN: Soft, nontender. Bowel sounds active. No rigidity. No rebound or guarding. No CVA tenderness. EXTREMITIES: No clubbing, cyanosis or pedal edema. MUSCULOSKELETAL: No joint swelling. NEUROLOGIC: Awake, alert, oriented times three. No focal deficit. LYMPHATIC: No lymph nodes palpable. SKIN: Intact. ASSESSMENT: 1. CHEMICAL PNEUMONITIS 2. LEUKOCYTOSIS SECONDARY TO CHEMICAL PNEUMONITIS 3. RESPIRATORY DISTRESS SECONDARY TO CHEMICAL PNEUMONITIS PLAN: 1. Admit the patient to the regular floor. 2. Levaquin. 3. IV fluids. 4. Solu-Medrol 40 q.8hr. 5. Duonebs. 6. Lovenox 40 mg SQ daily. MTDD
--- NOTE | 2017-06-16 13:40 | DS ---
DATE OF SERVICE: 04/29/17 FINAL DIAGNOSIS: 1. SINUS TACHYCARDIA, ALBUTEROL MEDICATION MOST LIKELY 2. CHEMICAL PNEUMONITIS FROM THE BUG SPRAY 3. PNEUMONIA BILATERAL 4. ANXIETY 5. LEUKOCYTOSIS SECONDARY TO THE BUG SPRAY 6. HYPERGLYCEMIA FROM THE STEROIDS PLAN: 1. Discharge the patient home. 2. [facility] follow up on 05/05/2017. 3. Home medications resumed. 4. New prescriptions of Cardizem 60 take one tablet by mouth twice a day. Medrol Dose pack as directed and finish. 5. Activity-get plenty of rest. 6. Take yogurt and Probiotics. 7. Diet-Regular and healthy diet. 8. Strictly advised the Albuterol only prn. DISEASE SPECIFIC EDUCATION: About sinus tachycardia, medication side effects, chemical pneumonia and risk of pneumonia were discussed with the patient in detail. He verbalized understanding. HOSPITAL COURSE: Al Mcadams who came to the emergency room with onset of shortness of breath. The patient was using bug spray and was not wearing any mask. He started with severe shortness of breath, coughing, congestion and wheezing. Dr. Marquez saw the patient in the emergency room. White count was 18,000, potassium 3.2. Chest x-ray done showed patchy left basilar and questionable right basilar infiltrate, may represent pneumonitis and pneumonia. The patient was given IV steroids, breathing treatments. Solu- Medrol 40 every 6 hours, DuoNebs, Lovenox for the DVT prophylaxis, Levofloxacin was given. The patient was having sinus tachy. Heart rate was 136. 98, 110, 115. The patient was started on the Cardizem, which did help him. TSH was low at 0.090. The patient was gradually getting better. Xopenex was given instead of the Xanax and with the Cardizem the heart rates was below 100. The patient was feeling fine and less short of breath. At that time he was discharged to home. Time spent on the patient is more than 60 minutes today. MTDD
== END 2017-04-29 11:38 | disposition home or self-care (01) | DRG 205 ==
LOC: ED 18:36 → MEDSURG B 19:45
PROVIDERS: ADMIT Emergency Medicine; ATTEND Emergency Medicine
DX: J95.4 Chemical pneumonitis due to anesthesia (principal); J18.9 Pneumonia, unspecified organism; T59.891A Toxic effect of other specified gases, fumes and vapors, accidental (unintentional), initial encounter; R00.0 Tachycardia, unspecified; D72.829 Elevated white blood cell count, unspecified; R73.9 Hyperglycemia, unspecified; D64.9 Anemia, unspecified; R06.00 Dyspnea, unspecified; F41.9 Anxiety disorder, unspecified; F17.290 Nicotine dependence, other tobacco product, uncomplicated; Z79.899 Other long term (current) drug therapy
CPT/HCPCS: 36415; 80053; 84439; 84443; 84481; 85025; 87040; 87651; 87880; 93005; 93010; 94640; 96372; 96374; 96375; 99233; 99239; 99285

== ENCOUNTER 2017-05-05 08:53 | Outpatient (CLI) | END 2017-05-05 08:54 | disposition home or self-care (01) | LOC: CAR 08:53 | PROVIDERS: ATTEND Emergency Medicine | DX: J44.9 Chronic obstructive pulmonary disease, unspecified (principal); F17.290 Nicotine dependence, other tobacco product, uncomplicated; Z87.891 Personal history of nicotine dependence; R73.9 Hyperglycemia, unspecified; R00.0 Tachycardia, unspecified; I10 Essential (primary) hypertension; E04.1 Nontoxic single thyroid nodule | CPT/HCPCS: 36415; 83036; 84439; 84443; 84481; 85025 ==

== ENCOUNTER 2017-05-05 14:48 | Outpatient (CLI) ==
--- NOTE | 2017-05-05 15:30 | US ---
Exam: Bedolla-scale and color Doppler ultrasonographic evaluation of the thyroid. Comparison: 11/14/2016. Reason for exam: Thyroid nodule. FINDINGS: The right thyroid lobe measures approximately 4.35 x 1. 28 x 2.35 cm. There is a complex appearing lesion in the right thyroid lobe measures 3.81 x 1.92 x 0.98 cm. The isthmus is unremarkable. The left thyroid lobe measures approximately 4.02 x 1.32 x 1.90 cm. In the inferior portion of the left thyroid lobe there is a complex appearing 1.03 x 1.18 x 0.80 cm nodule. There is also a complex appearing sub centimeter nodule in the left superior thyroid lobe m easuring approximately 0.61 x 0.33 x 0.38 cm. Impression: 1. Enlarging right thyroid lobe nodule now measuring approximately 3.81 cm. Recommend endocrine con sultation and would consider biopsy if not already performed. 2. Similar appearing nodules in the left thyroid lobe.
[2017-05-05 17:01] LABS: BASOPHILS # (AUTO) 0.1 K/uL (0-0.2); BASOPHILS % (AUTO) 0.6 % (0.0-3.0); EOSINOPHILS # (AUTO) 0.2 K/ul (0.0-0.7); EOSINOPHILS % (AUTO) 1.2 % (0.0-7.0); HEMATOCRIT 42.2 % (42.0-52.0); HEMOGLOBIN 14.8 g/dl (14.0-18.0); LYMPHOCYTES # (AUTO) 3.8 K/uL (0.60-3.4); LYMPHOCYTES % (AUTO) 19.8 (10.0-50.0); MEAN CORPUSCULAR HEMOGLOBIN 31.8 pg (27.0-31.0); MEAN CORPUSCULAR HGB CONC 35.1 (31.8-35.4); MEAN CORPUSCULAR VOLUME 90.8 fl (80.0-94.0); MONOCYTES # (AUTO) 0.9 K/uL (0.4-2.0); MONOCYTES % (AUTO) 4.7 (0-10); NEUTROPHILS # (AUTO) 13.2 K/ul (2.0-6.9); NEUTROPHILS % (AUTO) 68.7; PLATELET COUNT 289 10^3/uL (140-440); RED BLOOD COUNT 4.65 10^6/ul (4.70-6.10); WHITE BLOOD COUNT 19.26 K/ul (4.2-10.2)
== END 2017-05-05 14:49 | disposition home or self-care (01) ==
LOC: RAD 14:48
PROVIDERS: ATTEND Emergency Medicine
DX: R73.9 Hyperglycemia, unspecified (principal); R00.0 Tachycardia, unspecified; I10 Essential (primary) hypertension; E04.1 Nontoxic single thyroid nodule
CPT/HCPCS: 36415; 83036; 84439; 84443; 84481; 85025

== ENCOUNTER 2017-06-02 20:59 | Emergency (ER) ==
[2017-06-02 21:04] VITALS: BP 161/106; TEMP 98.3; BMI 25.8
--- NOTE | 2017-06-02 21:16 | ED.PDOC ---
General ED Provider: Dr. BRADEN DARLING-ER Chief Complaint: Tooth Problem Stated Complaint: i broke off a tooth and it hurts Time Seen by Physician: 21:14 Mode of Arrival: Walk-In Information Source: Patient Exam Limitations: No limitations [facility] T[facility] Documentation Reviewed and Agree: Yes EENT Complaint Exam - Dental/Oral Complaint/Exam Mechanism of Injury: Unknown Onset/Duration: 12hrs Symptoms Are: Still present Timing: Constant Initial Severity: Mild Current Severity: Moderate Location: left lower incisor Character: Reports: Dull, Aching, Throbbing Aggravating: Reports: Heat, Cold, Chewing Alleviating: Reports: None Associated Signs and Symptoms: Denies: Swelling, Discharge, Fever, Foul odor, Foul taste in mouth Related History: Reports: Previous tooth problem Tooth Findings: Present: Gross decay, Gross caries Cervical Lymphadenopathy Present: No Facial Swelling Present: No Bleeding Present: No Oropharynx Findings: Absent: Clots, Active bleeding Septal Hematoma: No Foreign Body Present: No Dysphagia Present: No Drooling Present: No Asymmetrical Tonsillar Swelling Present: No Uvula Midline: Yes Celi-tonsillar Fluctuence: No Trismus Present: No Palatal Petechiae Present: No Scarlatinaform Rash Present: No Differential Diagnoses: Dental Abcess, Dental Caries Review of Systems - Review Of Systems Constitutional: Reports: No symptoms Eyes: Reports: No symptoms Ears, Nose, Mouth, Throat: Reports: Mouth pain, Mouth swelling Respiratory: Reports: No symptoms Cardiac: Reports: No symptoms GI: Reports: No symptoms : Reports: No symptoms Musculoskeletal: Reports: No symptoms Skin: Reports: No symptoms Neurological: Reports: No symptoms Endocrine: Reports: No symptoms Hematologic/Lymphatic: Reports: No symptoms All Other Systems: Reviewed and Negative Past Medical History - Past Medical History Previously Healthy: Yes Endocrine: Reports: None Cardiovascular: Reports: Other (echo showed valve issues 9 months ago- resolved on repeat exam, chronic fast heart beat "110") Respiratory: Reports: Pneumonia (5 0 years old and as a teen) Hematological: Reports: None Gastrointestinal: Reports: None Genitourinary: Reports: None Neuro/Psych: Reports: None Musculoskeletal: Reports: None Cancer: Reports: None - Surgical History General Surgical History: Reports: None - Family History Family History: Reports: None - Social History Smoking Status: Former smoker, Vaping Hx Substance Use: No Alcohol Screening: None Lives: With family - Immunizations Tetanus Shot up to Date: No (unsure) Physical Exam - Physical Exam Appearance: Well-appearing, No pain distress, Well-nourished Pain Distress: Moderate Eyes: RIAZ ENT: Ears normal, Nose normal, Oropharynx normal (noted dental caries ) Neck: Supple Respiratory: Airway patent Cardiovascular: RRR, Pulses normal, No rub, No murmur GI/: Tender Musculoskeletal: Normal strength, ROM intact, No edema, No calf tenderness Skin: Warm, Dry, Normal color Neurological: Sensation intact, Motor intact, Reflexes intact, Cranial nerves intact, Alert, Oriented Psychiatric: Affect appropriate, Mood appropriate Critical Care Note - Critical Care Note Total Time (mins): 0 Course - Course Vital Signs: Temp Pulse Resp BP Pulse Ox 06/02/17 21:00 98.3 F 99 H 20 161/106 H 96 Departure - Departure Time of Disposition: 21:15 Disposition: HOME SELF-CARE Discharge Problem: Dental caries Instructions: Toothache (ED) Condition: Good Pt referred to PMD for follow-up: Yes Additional Instructions: clindamycin 150mg tid x 7days--norco 7.5mg q 4hrs prn pain #10--f/u dentist ashley Allergies/Adverse Reactions: Allergies amoxicillin Adverse Reaction (Verified 06/02/17 21:04) Sulfa (Sulfonamide Antibiotics) Adverse Reaction (Verified 06/02/17 21:04) Home Medications: Ambulatory Orders Albuterol Sulfate [Proair Hfa] 2 puff IH Q6H PRN #1 puff 11/15/16 Metoprolol Tartrate [Lopressor] 12.5 mg PO BID #60 tablet 11/15/16 Diltiazem HCl [Cardizem] 60 mg PO Q12HR #60 tablet 04/29/17 Diazepam 2 mg PO DAILY PRN #50 05/27/17
== END 2017-06-02 21:22 | disposition home or self-care (01) ==
LOC: ED 20:59
DX: K02.7 Dental root caries (principal); S02.5XXA Fracture of tooth (traumatic), initial encounter for closed fracture
CPT/HCPCS: 99282